=== PATIENT | female | born 1980 | race African-American/Black ===

== ENCOUNTER → 2016-07-06 | Day surgery (SDC) | payer OTHER ==
[~2016-07-06] VITALS: Ht 160 cm; Wt 53.6 kg
[~2016-07-06] MED LIST: *ONDANSETRON 4 MG VIAL PERIprocedural Use ONLY ONE; ACETAMINOPHEN 1000 MG/100 ML VIAL IV SCH; BUPIVACAINE HCL PF 0.5% 30 ML VIAL ONE; BUPIVACAINE/EPINEPHRINE 0.5% PF 30 ML VIAL ONE; CHLORHEXIDINE GLUCONATE 2 % 1 PACK (2 CLOTHS) TOPICAL PRN; DO NOT ADM ANY ANTICOAGULANT DRUGS PRN; INSULIN HUMAN REGULAR 1,000 UNITS/10 ML VIAL SQ PRN; KETOROLAC TROMETHAMINE 30 MG/ML (IVP) VIAL IV PUSH SCH; LACTATED RINGER'S 1000 ML IV PRN; METO25CR OR; METO25TA6 PO; METOPROLOL TARTRATE 25 MG TAB PO PRN; MIDAZOLAM HCL 2 MG/2 ML VIAL ONE; MORPHINE SULFATE 4 MG/ML INJ IV PRN; ONDANSETRON HCL 4 MG/2 ML VIAL IV PRN; ONDANSETRON HCL 4 MG/2 ML VIAL IV PUSH ONE; POVIDONE IODINE 5% (ANTISEPSIS KIT) 4 APPLICATIONS EACH NARE PRN; PROPOFOL 200 MG/20 ML AMP IV ONE; SODIUM CHLORID 0.9% 500 ML IV PRN; SODIUM CHLORIDE 0.9% FLUSH 10 ML FLUSH IV FLUSH PRN; SODIUM CHLORIDE 0.9% FLUSH 10 ML FLUSH IV FLUSH SCH; TRIAPOW43 PO; ceFAZolin 2 GM PREMIX 50 ML IV SCH; fentaNYL CITRATE 250 MCG/5 ML AMP ONE; metroNIDAZOLE 500 MG INJ 100 ML IV SCH; oxyCODONE/ACETAMINOPHEN 5 MG/325 MG TAB PO PRN
[2016-07-06 08:12] VITALS: BP 127/90; PULSE 98; RESP 18; TEMP 98; O2SAT 98
[2016-07-06 08:43] LABS: AUTOMATED NEUTROPHIL # 10.9 TH/MM3 (1.8-7.7); BASOPHIL # 0.1 TH/MM3 (0-0.2); BASOPHIL % 0.5 % (0.0-2.0); EOSINOPHIL # 0.3 TH/MM3 (0-0.4); EOSINOPHIL % 1.8 % (0.0-4.0); HEMATOCRIT 40.9 % (35.0-46.0); LYMPH % 14.5 % (9.0-44.0); MEAN CELL VOLUME 91.2 FL (80.0-100.0); MEAN CORPUSCULAR HEMOGLOBIN 30.9 PG (27.0-34.0); MEAN CORPUSCULAR HGB CONC 33.9 % (32.0-36.0); MONO % 4.7 % (0.0-8.0); NEUT % 78.5 % (16.0-70.0); PLATELET COUNT 289 TH/MM3 (150-450); RED BLOOD COUNT 4.48 MIL/MM3 (4.00-5.30); RED CELL DISTRIBUTION WIDTH 14.1 % (11.6-17.2); WHITE BLOOD COUNT 13.9 TH/MM3 (4.0-11.0)
[2016-07-06 08:50] LABS: HEMO FLAGS AUTO DIFF
[2016-07-06 09:24] LABS: BANDS 3 % (0-6); BASOPHILS 1 % (0-2); NEUTROPHIL # MANUAL DIFF 10.7 TH/MM3 (1.8-7.7); POLYS (SEG NEUTROPHILS) 74 % (16-70); WBC DIFF SAMPLE 100
[2016-07-06 09:27] LABS: PLATELET ESTIMATE SMEAR NORMAL (NORMAL); PLATELET MORPHOLOGY NORMAL (NORMAL); SCAN/DIFF FINAL DIFF MANUAL
[2016-07-06 11:04] VITALS: BP 107/77; PULSE 80; RESP 16; TEMP 97.7; O2SAT 98
--- NOTE | 2016-07-07 13:19 | MP ---
cc: RICCARDO MICHAEL MD DATE OF SURGERY: 07/06/2016. PREOPERATIVE DIAGNOSIS: Right breast abscess. POSTOPERATIVE DIAGNOSIS: Right breast abscess. OPERATIVE PROCEDURE PERFORMED: Incision and drainage right breast abscess. SURGEON: Riccardo Michael MD. ENROLLMENT CONSULTANT: MARTY Villegas. ANESTHESIA: General via LMA. ESTIMATED BLOOD LOSS: 5 mL DESCRIPTION OF THE PROCEDURE IN DETAIL: The patient WAS taken to the operating room AND placed in supine position. General anesthesia was induced. The right breast was prepped and draped in the usual sterile fashion and a surgical time-out was performed. The right breast abscess had begun to spontaneously drain when she was prepped. I extended the area of drainage to a length of 1 to 2 cm along the medial border of the areola. There was a large amount of purulent fluid expressed. Cultures were taken from inside the cavity. The cavity was extended superiorly and I made a separate small stab incision along the border of the areola and the medial superior position. All loculations were broken up. The cavity was irrigated with a 50/50 mixture of saline and peroxide. A blue Vesseloop was placed between each separate opening and tied without any tightness on the skin or tissue. There was good hemostasis. Dry dressings were applied. The patient tolerated procedure well and was extubated and taken to the post-anesthesia care unit in stable condition. Riccardo Michael MD JPD/JCC /10:32 AM /1:08 PM
== END | disposition home or self-care (01) ==
LOC: HSDC 07:03
PROVIDERS: ATTEND Surgery
DX: N61.1 Abscess of the breast and nipple (principal); B96.89 Other specified bacterial agents as the cause of diseases classified elsewhere; I10 Essential (primary) hypertension
CPT/HCPCS: 00400; 19020; 85007; 85027; 87070; 87185; 87205; J0131; J0690; J2250; J2405; J3010